=== PATIENT | female | born 1995 | race Caucasian/White ===

== ENCOUNTER 2021-04-19 12:52 | Emergency (ER) | payer BC, SELFPAY ==
[2021-04-19 13:04] VITALS: BP 123/78; PULSE 84; RESP 16; TEMP 37.3; O2SAT 98
[2021-04-19 13:09] VITALS: BP 123/78; PULSE 84; RESP 16; TEMP 37.3; O2SAT 98
--- NOTE | 2021-04-19 13:32 | ED.URI ---
HPI - URI/Sore Throat General Chief Complaint: Upper Respiratory Infection Stated Complaint: Cough,Chest Congestion,Body Aches Time Seen by Provider: 04/19/21 13:25 Source: patient and RN notes reviewed Mode of arrival: ambulatory Limitations: no limitations History of Present Illness HPI Narrative: Stefanie is a 25-year-old female patient who ambulated into the [facility]. Patient states she started having chest congestion cough and body aches on Sunday. Patient did a rapid Covid test at [facility] on Sunday with the which was negative. Patient states she started feeling worse last night with severe body aches and increase in the chest congestion. Patient has not been taking any [id number] medications. Related Data Home Medications Medication Instructions Recorded Confirmed No Home Medications 04/19/21 04/19/21 Allergies Allergy/AdvReac Type Severity Reaction Status Date / Time No Known Allergies Allergy Unknown Verified 04/11/03 10:51 NKFA Allergy Unknown Uncoded 11/18/02 15:09 Review of Systems Review of Systems: CONSTITUTIONAL: +body aches, +fever, +chills, denies sweats. EYES: Denies visual changes, redness, or discharge. ENT: Denies rhinorrhea,+ congestion, denies sore throat, or otalgia. CARDIOVASCULAR: Denies chest pain, palpitations, or edema. RESPIRATORY: +cough demies dyspnea. GASTROINTESTINAL: Denies abdominal pain, nausea, vomiting, or diarrhea. GENITOURINARY: Denies dysuria or hematuria. SKIN: Denies rash, itching, or wounds. MUSCULOSKELETAL: Denies back pain, joint pain, or myalgia. NEUROLOGIC: Denies headache, numbness, tingling, or weakness. PSYCH: Denies depression or anxiety. All systems reviewed & are unremarkable except as noted in HPI and below PMFSH Comments At time of signature, I have reviewed and agree with nursing past medical, surgical, social and family history unless otherwise noted. Please see nursing chart for further information. There is no relevant family history pertinent to the presenting complaint Exam Narrative: GENERAL: Well-appearing, well-nourished, and in no acute distress. HEAD: Normocephalic, atraumatic. EYES: EOMI. No redness or drainage. Conjunctivae normal. ENT: Mucous membranes pink and moist. Nasal membranes are erythematous with clear drainage. Bilateral TMs are dull with mild amount of fluid. Posterior pharynx is erythemic with clear postnasal drainage noted. Uvula midline. NECK: Normal AROM. Supple. No lymphadenopathy. CHEST: No respiratory distress. Clear to auscultation. HEART: Regular rate and rhythm. No murmur appreciated. Normal peripheral pulses. MUSCULOSKELETAL: No bony tenderness. EXTREMITIES: Normal range of motion. No edema. SKIN: Warm, dry, no rash. Capillary refill normal. Normal skin turgor. NEURO: No focal deficits. Alert and oriented x3. Gait steady. PSYCH: Normal affect. No signs of depression or anxiety. Course Vital Signs Vital signs: Vital Signs Temperature 37.3 C 04/19/21 13:04 Pulse Rate 84 04/19/21 13:04 Respiratory Rate 16 04/19/21 13:04 Blood Pressure 123/78 04/19/21 13:04 Pulse Oximetry 98 04/19/21 13:04 Temperature 37.3 C 04/19/21 13:09 Pulse Rate 84 04/19/21 13:09 Respiratory Rate 16 04/19/21 13:09 Blood Pressure 123/78 04/19/21 13:09 Pulse Oximetry 98 04/19/21 13:09 Reviewed MDM - URI/Sore Throat MDM Narrative Medical decision making narrative: Patient has only had symptoms since 03/16/21. Will be treated with an upper respiratory infection. Patient does have a cough however lungs are clear. Patient will be educated to use Zyrtec or Claritin-D for the next 7 to 10 days. May use Tylenol cold medicine [id number]. Motrin or Tylenol for fever or pain. Patient was educated on viral illness and how antibiotics do not treat viruses. Repeat COVID-19 rapid test is negative. Differential Diagnosis Differential diagnosis: Likely upper respiratory infection Med
== END 2021-04-19 13:56 | disposition home or self-care (01) ==
PROVIDERS: Emergency Provider Nurse Practitioner Family
DX: J06.9 Acute upper respiratory infection, unspecified (principal); Z20.822 Contact with and (suspected) exposure to COVID-19
CPT/HCPCS: 87426; 99203; C9803; G0463